=== PATIENT | female | born 1960 | race Caucasian/White ===

== ENCOUNTER 2022-01-23 11:11 | Outpatient (CLI) | payer MEDICARE, BC, SELFPAY ==
--- NOTE | 2022-01-23 11:15 | CRLHL7_ITS ---
For Patients: As a result of the Century Cures Act, medical imaging exams and procedure reports are released immediately into your electronic medical record. You may view this report before your referring provider. If you have questions, please contact your health care provider. INDICATION: Right hip pain. Degenerative arthritis. Informed consent was obtained. Benefits and risks were discussed. The patient agreed to proceed. [place] protocol was followed. TIME-OUT conducted just prior to starting procedure confirmed patient identity, site/side, procedure, patient position, and availability of correct equipment. Pause for cause was performed. Utilizing sterile technique and 1 percent lidocaine for local anesthetic, under fluoroscopic guidance, a 22-gauge needle was advanced into the right hip joint without significant difficulty. Subsequently, a few cc of nonionic Omnipaque-240 was instilled demonstrating the needle tip within the joint space. Subsequently, a mixture of 2 cc Depo-Medrol 40 mg/mL and 4 cc of Xylocaine 1 percent was injected into the patient`s hip joint without difficulty. Prior to the procedure the patient stated her pain was between 6 and 7/10 and after the procedure 3/10. 1 minute 58 seconds fluoroscopy time utilized. IMPRESSION: Technically successful fluoroscopically-guided right hip injection for pain. No immediate complications. Dictated by Prince Stafford MD @ 01/23/2022 2:04:58 PM JR/Dictated by: Prince Stafford MD @ 01/23/2022 1:06:00 PM (Electronically Signed)
== END 2022-01-23 11:12 | disposition home or self-care (01) ==
LOC: RAD 11:14
PROVIDERS: PCP Family Medicine; Visit Provider Orthopaedic Surgery Sports Medicine
DX: M16.11 Unilateral primary osteoarthritis, right hip (principal); M25.551 Pain in right hip
CPT/HCPCS: 20610; 77002; Q9966

== ENCOUNTER 2022-11-26 11:00 | Outpatient (RCR) | payer MEDICARE, BC, SELFPAY ==
--- NOTE | 2022-10-03 09:38 | PT.OPEX ---
PT [place] Outpatient Eval PT [facility] Outpatient Eval Start: 10/03/22 07:53 Freq: Status: Active Protocol: Document 10/03/22 07:54 ENM (Rec: 10/03/22 09:32 ENM [id number]) E-signed By Uma Christopher, DPT Physical Therapy Outpatient Evaluation Insurance Information Recert Due Date 12/26/22 Insurance Name Medicare B Medical Diagnosis unilateral primary osteoarthritis, right hip other specified enthesopathies of right lower limb, excluding foot trochanteric bursitis, right hip morbid (severe) obesity due to excess calories bilateral osteoarthritis of knee pain in left hip Treating Diagnosis right hip pain, bilateral knee pain, back pain, deconditioning, decreased hip and knee strength, impaired gait Referring MD Ravi Subjective Subjective Patient presents to PT for pains in back, right hip and bilateral knees that have been present for years. She states that she does not walk far she is only able to go half a block and then she starts hurting. The most bothersome of them all is the right hip. The knees bother her the most with sitting for a while at work then standing and stairs. With standing to work in her kitchen the back starts to hurt almost immediately. Back pains do not run down the legs . She saw months ago and did not follow up with PT but she is motivated to come in now as the pains are getting worse. Had a hip injection at the time which seemed to provide a few weeks of relief. She was going to see the spine clinic yesterday but decided to cancel that appointment. She doesn't move much throughout her day but goes to water aerobics about twice a week. 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 33s hip flexors 4+/5 B knee extensors 4-/5 B hip abductors 3+/5 B palpation/joint mobility: + for pain with palpation of R glute med and bursa gait/ambulation: Ambulates with slight left trunk lean Patient able to ambulate consecutively for 4 mins and 30s 623', knees started bothering 1.5 mins in, hip started bothering 3 mins in and was the most limiting SLS able to hold 8-10s B, noted L hip drop when standing on R leg special tests: MATHEW + on L - R FADDIR + on L - R SCOUR - B Functional Test Performed & Score LEFS: Assessment Assessment/Impression Patient is a 62 year old female presenting with bilateral knee, right hip and back pain that has been increasing in intensity over the years. Their primary complaint is of pain with all mobility. She is limited in her standing and walking tolerance as well as ability to perform the stairs. Upon assessment patients concordant pains brought on with ambulation, R lumbar sidebending, and palpation of right greater trochanter region. Special testing + on L side for MATHEW and FADDIR, - on R side. She displays global B LE weakness most significant in hip abductors and knee extensors. She is able to ambulate for 4.5 mins (623') before being limited by her right hip pain. Sandie would greatly benefit from skilled PT to address impairments stated above in order to perform all functional mobility and household duties without significant discomfort or difficulty. Primary Functional Limitations walking, standing, stairs Plan of Care Rehabilitation Potential Good Physical Therapy Goals In 8-10 visits: 1. Patient will be IND with HEP and self management of symptoms 2. Patient will improve 5x STS from 27.33s to 23.33s (MDC 4s ) to demonstrate improvements in LE functional strength and endurance 3. Patient will be able to navigate a full flight of stairs without difficulty 4. 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 Patient will be able to tolerate walking at least 650' to progress tolerance for community mobility Coordination/Communication With Referral Source Treatment Plan/Direct Interventions Gait Training,Ice/Cold/ Vasopneumatic,Joint Mobilization,Manual Therapy, Neuromuscular Re-ed,Self-Care/ Home Management,Therapeutic Activities,Therapeutic Exercises Frequency/Duration 1x a week for 8 weeks, as needed for 2-3 visits Patient Will Be Discharged From Therapy Completion of LTG(s), Independent w/HEP Evaluation Billing Untimed Code Treatment Minutes 34 Complexity Low Certification Information Initial Certification Date 10/03/22 Ending Certification Date 12/26/22 Provider Signature Shows Agreement With POC & Medical Necessity Physician Signature & Date Requested Please Sign/Date Here Physician Comment/Change : Physician NPI Number #
== END 2023-01-30 14:41 | disposition home or self-care (01) ==
PROVIDERS: PCP Family Medicine; Visit Provider Orthopaedic Surgery Sports Medicine
DX: M16.11 Unilateral primary osteoarthritis, right hip (principal); M76.891 Other specified enthesopathies of right lower limb, excluding foot; M70.61 Trochanteric bursitis, right hip; E66.01 Morbid (severe) obesity due to excess calories; Z68.41 Body mass index [BMI] 40.0-44.9, adult; M17.0 Bilateral primary osteoarthritis of knee; M25.552 Pain in left hip; M25.562 Pain in left knee; M25.561 Pain in right knee; M25.551 Pain in right hip; M54.9 Dorsalgia, unspecified; R26.9 Unspecified abnormalities of gait and mobility; R53.1 Weakness; Z51.89 Encounter for other specified aftercare
CPT/HCPCS: 97110; 97140; 97161

== ENCOUNTER 2024-12-20 10:30 | Outpatient (RCR) | payer MEDICARE, BC, SELFPAY ==
--- NOTE | 2024-10-26 16:16 | PT.OPEX ---
PT [facility] Outpatient Eval PT [facility] Outpatient Eval Start: 10/26/24 10:59 Freq: Status: Active Protocol: Document 10/26/24 10:59 SÁNCHEZ (Rec: 10/26/24 12:54 HEN [id number]) E-signed By Minerva Floyd DPT Physical Therapy Outpatient Evaluation Insurance Information Recert Due Date 01/23/25 Insurance Name Medicare B Medical Diagnosis E66.01 corresponds to Morbid (severe) obesity due to excess calories Z68.41. Body mass index [BMI] 40 or greater, adult OA of bilateral knees Treating Diagnosis M25.561 (Pain in right knee) and M25.562 (Pain in left knee) Referring MD Jermaine Ravi MD Subjective Preferred Name Sandie Loyola Pt is a 64 year old female with insidious onset bilateral knee pain over the past 10 years. Pt plans to get R knee replaced in February and L knee shortly after. Pt would like to get ready for surgery. R hip pain. 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 Treatment Diabetes, Depression, HLD managed with medication, Precautions/ Ozempic, Contraindications Therapy Limitations/ Not Limited Systems Review Objective Other/Pertinent Knee ROM: Objective R: X-5-115 R X-4-115 LE MMT: Hip flexion 5/5 bilaterally Hip abduction 3+/5 bilaterally Knee flexion 4/5 bilaterally Knee extension 4/5 bilaterally Ankle DF: 5/5 bilaterally Ankle PF: 2+/5 bilaterally tested in sitting Palpation: increased tenderness along bilateral quads, decreased patellar mobility Assessment Assessment/ Patient is a 64 year old female with chronic bilateral Impression knee pain with insidious onset. Patient demonstrates impairments in bilateral knee ROM, LE strength and increased pain consistent with bilateral knee OA. These impairments impact the patient's transfers, ambulation , stair navigation and participation in ADLs and IADLs including ward aide. Patient will benefit from skilled physical therapy to address the impairments and activity limitations listed above. Plan of Care Rehabilitation Good Potential Rehabilitation Patient motivation Potential Comments Physical Therapy Short term goals 6 weeks Goals 1. Patient will demonstrate independence with initial home exercise program 2. Patient will demonstrate full knee extension ROM in order to prepare for surgery skilled nursing goals 12 weeks 1. Patient will demonstrate independence with finalized home exercise program in order to self manage condition 2. Patient will complete 15 reps during 30 second sit to stand to demonstrates improved bilateral functional knee strength in order to prepare for surgery 3. Patient will ascend/descend 5 stairs reciprocally with 1 rail and no increase in pain in order to improve home navigation. Coordination/ Referral Source Communication With Treatment Plan/ Dry Needling,Electrical Stimulation,Ice/Cold/ Direct Interventions Vasopneumatic,Joint Mobilization,Manual Therapy, Neuromuscular Re-ed,Self-Care/Home Management, Therapeutic Activities,Therapeutic Exercises Frequency/Duration 1x/week for 12 weeks Patient Will Be Completion of LTG(s),Skills Plateau,Independent w/HEP Discharged From Therapy Evaluation Billing Untimed Code 15 Treatment Minutes Complexity Low Certification Information Initial 10/26/24 Certification Date Ending Certification 01/23/25 Date Provider Signature Yes Required Provider Signature POC & Medical Necessity Shows Agreement With Physician NPI Number Write NPI# Here Physician Comment/ : Change Physician Signature Please Sign/Date Here & Date Requested
== END 2024-12-20 11:22 | disposition home or self-care (01) ==
PROVIDERS: PCP Student in an Organized Health Care Education/Training Program; Visit Provider Orthopaedic Surgery Sports Medicine
DX: M17.0 Bilateral primary osteoarthritis of knee (principal); E66.01 Morbid (severe) obesity due to excess calories; Z68.41 Body mass index [BMI] 40.0-44.9, adult; Z51.89 Encounter for other specified aftercare
CPT/HCPCS: 97110; 97161; 97535

== ENCOUNTER 2025-02-22 11:33 | Day surgery (SDC) | payer MEDICARE, BC, SELFPAY ==
[2025-02-22] VITALS (23 sets, daily range): BP systolic 96–147; BP diastolic 51–84; PULSE 75–108; RESP 10–16; TEMP 35.8–37; O2SAT 88–98; BMI 42.0
[2025-02-22] MEDS: LACTATED RINGERS 1000 ML 1,000 ML 100 ML IV ×2 (11:40→15:50)
[2025-02-22] MEDS: ACETAMINOPHEN 500 MG TABLET 1000 MG PO ×2 (12:35→20:29)
[2025-02-22] MEDS: OXYCODONE (CR) 10 MG TAB.ER.12H PO (12:35)
[2025-02-22] MEDS: SODIUM CHLORIDE 0.9 % (FLUSH) 10 ML SYRINGE IVF ×2 (12:36→18:22)
--- NOTE | 2025-02-22 14:11 | SUR.PREOP ---
TIME?OUT:? PT/RN/MDA?VERIFICATION?OF?SURGICAL?SITE,?PROCEDURE,?AND?CONSENT OBTAINED?PRIOR?TO?INVASIVE?PROCEDURE.
--- NOTE | 2025-02-22 14:11 | SUR.PREOP ---
TIME?OUT:?1411 PT/RN/MDA?VERIFICATION?OF?SURGICAL?SITE,?PROCEDURE,?AND?CONSENT OBTAINED?PRIOR?TO?INVASIVE?PROCEDURE.
[2025-02-22] MEDS: MIDAZOLAM HCL 1 MG/ML inj IVP (14:13)
--- NOTE | 2025-02-22 14:18 | P.ANES_ITS ---
Anesthesia Charges Start Date/Time Anesthesia Start Date: 02/22/25 Anesthesia Start Time: 14:58 Stop Date/Time Anesthesia Stop Date: 02/22/25 Anesthesia Stop Time: 18:15 Coding CPT Codes CPT Codes: ANESTH KNEE ARTHROPLASTY - 09301 ([id number]) P3 - PATIENT W/SEVERE SYS DISEASE, QK - SERVICE DELIVERY CONSULTANT 2-4 CNCRNT ANES PROC, QX - EQUIPMENT MAINTENANCE TECH SVC W/ MD MED DIRECTION
--- NOTE | 2025-02-22 14:18 | P.NB_ITS ---
Nerve Block Nerve Block Time Seen by Provider: 14:15 Date Seen: 02/22/25 Type of block requested by surgeon for post-operative analgesia: adductor canal Side: right Time out performed: Yes Verification of patient name: Yes Verification of date of : Yes Site marking: site marked Name of person performing procedure: Selvin Continuous monitoring Was continuous monitoring of O2 sat, B/P, cardiac rehabilitation specialist, recorded every 15 minutes?: Yes Procedure Checklist: sterile prep, needles and gloves Ultrasound guided. Images saved: Yes Medications given in 5ml increments after negative aspiration: Marcaine %: 0.25 mL: 15 Needle gauge: 20 Precedex (mcg): 25 Patient tolerated procedure well: Yes Block Charges Block Charge (with Pro Fee): Femoral Nerve Use of Ultrasound Machine for Block: Yes- US Guidance/pain block
--- NOTE | 2025-02-22 14:18 | P.NB_ITS ---
Nerve Block Nerve Block Time Seen by Provider: 14:15 Date Seen: 02/22/25 Type of block requested by surgeon for post-operative analgesia: geniculars Side: right Time out performed: Yes Verification of patient name: Yes Verification of date of : Yes Site marking: site marked Name of person performing procedure: Selvin Continuous monitoring Was continuous monitoring of O2 sat, B/P, cafeteria monitor, recorded every 15 minutes?: Yes Procedure Checklist: sterile prep, needles and gloves Ultrasound guided. Images saved: Yes Medications given in 5ml increments after negative aspiration: Marcaine %: 0.25 mL: 9 Needle gauge: 25 Patient tolerated procedure well: Yes Block Charges Block Charge (with Pro Fee): Genicular Nerve Block
--- NOTE | 2025-02-22 14:18 | W.ANESCHARGE ---
Anesthesia Charges Start Date/Time Anesthesia Start Date: 02/22/25 Anesthesia Start Time: 14:58 Stop Date/Time Anesthesia Stop Date: 02/22/25 Anesthesia Stop Time: 18:15 Coding CPT Codes CPT Codes: ANESTH KNEE ARTHROPLASTY - 36752 ([id number]) P3 - PATIENT W/SEVERE SYS DISEASE, QK - JAVA SECURITY ARCHITECT 2-4 CNCRNT ANES PROC, QX - AERONAUTICAL ENGINEERING PROFESSOR SVC W/ MD MED DIRECTION
[2025-02-22] MEDS: TRANEXAMIC ACID 100 MG/ML INJ 1000 MG IV (15:17)
--- NOTE | 2025-02-22 15:20 | W.PM.H&PU ---
History & Physical Update History & Physical Update H&P Reviewed and patient assessed: No changes noted
--- NOTE | 2025-02-22 15:20 | PM.IMCN1 ---
Date of Consult Consult date: 02/22/25 Primary Care Provider: Roxann Joe MD Consult Narrative Narrative: Sandie Longo is a 64 year old female patient with past medical history of hyperlipidemia, diabetes type 2, NELY, morbid obesity and depression who presents for elective right knee replacement surgery. No history of anesthesia complications. Patient denies history of DVT/PEs or history of bleeding. Hb 15 g/dL (01/31/25). Normal kidney function. Last A1c 7.6 (Dec, 2024). Pt wears CPAP regularly. Patient is on aripiprazole 5 mg daily, duloxetine 90 mg once daily, atorvastatin 40 mg at bedtime and on semaglutide 2mg weekly (Held 7 days before surgery). Review of Systems Status of ROS: Reports: 6 or more systems reviewed and unremarkable except as noted in History and below PFSH [facility] Medical History (Updated 02/22/25 @ 15:25 by Mary Lange MD) Bursitis of hip, right ?M70.71 - Other bursitis of hip, right hip (ICD-10) Cervical high risk HPV (human papillomavirus) test positive ?R87.810 - Cervical high risk human papillomavirus (HPV) DNA test positive (ICD-10) Elevated ratio of cholesterol to high density lipoprotein (HDL) ?E78.6 - Lipoprotein deficiency (ICD-10) Severe episode of recurrent major depressive disorder, without psychotic features ?F33.2 - Major depressive disorder, recurrent severe without psychotic features (ICD-10) Seasonal affective disorder ?F33.8 - Other recurrent depressive disorders (ICD-10) Insomnia ?G47.00 - Insomnia, unspecified (ICD-10) Nasal congestion ?R09.81 - Nasal congestion (ICD-10) Type 2 diabetes mellitus without complication, without long-term current use of insulin ?E11.9 - Type 2 diabetes mellitus without complications (ICD-10) Hyperlipidemia ?E78.5 - Hyperlipidemia, unspecified (ICD-10) Prediabetes ?R73.03 - Prediabetes (ICD-10) Surgical History (Updated 02/22/25 @ 18:58 by Mary Lange MD) Status post arthroscopic partial medial meniscectomy (06/08/15) ?Z98.890 - Other specified postprocedural states (ICD-10) History of cholecystectomy (1996) ?Z90.49 - Acquired absence of other specified parts of digestive tract (ICD-10) Family History Mother Coronary artery disease Breast cancer Stroke Father No problems noted. Social History What is your current living situation?: I presently have a place to live Problems where you live: no known problems In the past 12 months, utilities in danger of being shut off: no In past 12 months, lack of transportation kept you from medical appts, meetings, work, or getting things needed for daily living: no In the past 12 mos, have been you worried that your food would run out before you had money to buy more?: never true In the past 12 mos, the food you bought just didn't last and you didn't have money to buy more?: never true Smoking Status: Never smoker Do you use any of these nicotine containing products: None How often do you have a drink containing alcohol: monthly or less AUDIT-C Alcohol total score: 1 Non-prescribed substance use: denies use Caffeine: Yes How often does anyone, including family, friends and others, physically hurt you: never How often does anyone, including family, friends and others, insult or talk down to you: never How often does anyone, including family, friends and others, threaten you with harm: never How often does anyone, including family, friends and others, scream or curse at you: never Meds Home Medications and Allergies Home Medications ?Medication ?Instructions ?Recorded ?Confirmed ?Type duloxetine 60 mg capsule,delayed 60 mg PO DAILY 01/17/22 02/22/25 History release albuterol sulfate 90 mcg/actuation 2 puff inhalation Q4-6H PRN 06/10/23 02/22/25 Rx aerosol inhaler shortness of breath or wheezing #1 ea atorvastatin 40 mg tablet 40 mg PO QPM 09/27/24 02/22/25 History naproxen 250 mg tablet 250 mg PO BID PRN 01/24/25 02/22/25 History Held on 02/22/25. Instructions: Resume on 03/23/25. semaglutide 1 mg/dose (4 mg/3 mL) 2 mg subcut .weekly 01/24/25 02/22/25 History subcutaneous pen injector (Ozempic) aripiprazole 5 mg tablet 5 mg PO QDAY 02/10/25 02/22/25 History acetaminophen 500 mg capsule 500 - 1,000 mg (1 - 2 x 500 mg) PO 02/22/25 Rx Q6H PRN #100 caps aspirin 81 mg tablet,delayed 81 mg PO BID #60 tabs 02/22/25 Rx release duloxetine 30 mg capsule,delayed 30 mg PO QAM 02/22/25 02/22/25 History release oxycodone 5 mg tablet 2.5 - 5 mg (0.5 - 1 x 5 mg) PO 02/22/25 Rx Q4-6H PRN pain #42 tabs sennosides 8.6 mg-docusate sodium 1 - 4 tab-cap (1 - 4 x 8.6-50 mg) 02/22/25 Rx 50 mg tablet (Senna-S) PO BID PRN constipation #60 tabs Allergies Allergy/AdvReac Type Severity Reaction Status Date / Time No Known Drug Allergies Allergy Verified 02/10/25 11:06 Exam Narrative: Exam Narrative: Physical exam GENERAL: Comfortable, no acute distress. HEAD AND NECK: Atraumatic, normocephalic CARDIOVASCULAR: RRR. Normal S1, S2. No murmurs. RESPIRATORY: Clear to auscultation B/L. Good air entry B/L. No wheezes or rhonchi. NEUROLOGY: Alert, awake, oriented X 3. Normal speech. PSYCH: Normal mood, normal affect. Const: Vital Signs, click to edit/add: Vital Signs - 24 hr 02/22/25 12:45 02/22/25 14:09 02/22/25 14:15 Temperature 98.6 F Pulse Rate 97 106 H 106 H Respiratory Rate 16 16 16 Blood Pressure 147/80 H 146/73 H 143/70 H Pulse Oximetry 94 98 98 Oxygen Delivery Me thod Room Air Nasal Cannula Nasal Cannula Oxygen Flow Rate 3 3 02/22/25 14:20 02/22/25 14:30 02/22/25 14:40 Temperature Pulse Rate 102 H 108 H 107 H Respiratory Rate 14 14 14 Blood Pressure 126/73 114/71 129/77 Pulse Oximetry 97 98 98 Oxygen Delivery Me thod Nasal Cannula Nasal Cannula Nasal Cannula Oxygen Flow Rate 3 3 3 Assessment and Plan Assessment and plan (1) Status post right knee replacement: Problem comment: Status post surgery on February 22. Weight bear as tolerated operative extremity. PT/OT consults DVT prophylaxis with at SCDs and aspirin 81 mg twice daily. Incentive spirometry Status: Acute (2) Type 2 diabetes mellitus without complication, without long-term current use of insulin: Problem comment: Last A1c 7.6 (Dec, 2024). Normal kidney function. On semaglutide at home Ordered glucose check Ordered insulin sliding scale Status: Acute (3) Obstructive sleep apnea: Problem comment: Pt wears CPAP regularly. Status: Acute (4) Morbid obesity with BMI of 40.0-44.9, adult: Problem comment: On semaglutide 2 mg weekly Status: Acute (5) Hyperlipidemia: Problem comment: On atorvastatin 40 mg daily Status: Acute (6) Depression: Problem comment: On aripiprazole and duloxetine Status: Acute Total Time Spent Total Time Spent: Today I spent 50 minutes seeing the patient, reviewing [facility]panse and EPIC notes/diagnostics, discussing the care plan with our care time that includes social work, PT/OT, pharmacy, RT, long-term and documenting my impressions and plan in the medical record.
--- NOTE | 2025-02-22 17:51 | P.ORPRC_ITS ---
Procedure Note Date of procedure: 02/22/25 Procedure: PREOPERATIVE DIAGNOSIS: 1. Right knee osteoarthritis, primary, severe 2. Morbid obesity-BMI 42.1 (105 kg) POSTOPERATIVE DIAGNOSIS: 1. Right knee osteoarthritis, primary, severe 2. Morbid obesity-BMI 42.1 (105 kg) PROCEDURE: 1. Right total knee arthroplasty - subvastus, limited tourniquet; modifier 22- 33% added difficulty and time for this case due to patient's body mass (BMI 42.1). This required increased number of assistance and retractors and a stemmed tibial component which added time and complexity to the case. SURGEON: Jermaine Ravi MD. SCIENTIFIC HELPER: Al Posada PA-C; PARAG Barkley - Of note, a skilled dental hygiene administrative assistant was critical for this case to aid in patient positioning, tissue retraction, limb manipulation/positioning, and closure. ANESTHESIA: Spinal anesthetic IMPLANTS: DePuy J&J all cemented TKA - Attune PS femur size 4 narrow Size 3 tibia ([id number] stem) 5 mm poly spacer 32 mm patella TOURNIQUET: 60 minutes at 250 torr EBL: 100 mL COMPLICATIONS: None evident INDICATIONS: The patient is a pleasant 64-year-old female who has experienced severe right knee pain and difficulty bearing weight. Workup included x-rays which revealed severe osteoarthrosis in the knee. Given the deformity, the dysfunction, and the pain, as well as the failure of nonoperative management, recommendation was made for surgery. FINDINGS: Full-thickness chondral loss diffusely throughout the medial compartment. Also patellofemoral and lateral compartment chondromalacia. Degenerative meniscus pathology medial greater than lateral. Moderate effusion upon entering the joint. DESCRIPTION OF PROCEDURE: Following a thorough discussion of risks, benefits, and alternatives consent was obtained and the right knee was marked. The patient was brought to the operating room and placed supine on the operating table. Induction of anesthesia was undertaken. 2 g IV Ancef and 1 g tranexamic acid was administered within 1 hr of incision preoperatively. Proper time-out was performed identifying proper patient, site, procedure. The operative extremity was prepped and draped in the appropriate sterile fashion using ChloraPrep after the patient was positioned supine with all bony prominences well padded. A longitudinal, anterior, midline skin incision was made starting approximately 3cm proximal to the superior pole of the patella and advanced distal to the tibial tubercle. A subvastus approach was utilized. A medial subperiosteal sleeve was created with knife, hassan elevator and curved osteotome. The retropatellar fatpad was resected and the synovium in the suprapatellar pouch excised to visualize the anterior femoral cortex. Femoral preparation was performed via an intramedullary guide. Step drill allowed access into the femoral canal. The distal cutting guide was placed with 5? of valgus and 10 mm cut on the distal femur. Femur was sized using a posterior referencing guide in 3? of external rotation. This found have a best fit with the sizing noted above. The 4 in 1 cutting block was then placed, and the distal femur shaped accordingly. The box cut was then created and the trial implant inserted to confirm appropriate fit. We turned our attention to the proximal tibia. Intramedullary guide was utilized for cutting with the goal of being 90 degree cut from the mechanical axis of the tibia in the varus/valgus plane utilizing tibial crest as the primary alignment. Initially a 2 mm resection was performed from the medial tibial plateau. An additional 4mm did require resection to achieve appropriate balance. Ultimately, balancing was achieved in both flexion and extension in both varus and valgus. The knee was able to achieve full extension as well comfortably. Of note, a stemmed tibial component was selected given the increased body mass (BMI 42.1). Given the patient's tight tibial canal and posterior tibial slope, a 30 mm stem was selected. The patella was initially measured and found have a thickness of 23 mm. It was resected back to approximately 14 mm. It was sized to be a best fit with as noted above. This was drilled, trial placed. All trials were placed and found to have an excellent stability and balance. At this stage, trial implants were removed, the knee was thoroughly irrigated with normal saline, and the cement was mixed. After irrigation, the knee was thoroughly dried, and cement placed, with the real tibial and femoral implants placed along with the patella. Trial poly spacer was placed and confirmed to have excellent range of motion and full extension, and the real poly spacer opened and inserted. All extra cement was removed, and a 3 min Betadine soak performed. Finally, a final irrigation round with normal saline was performed. Closure performed with 0 Vicryl and #0 Stratafix for the quad tendon/retinaculum. 2-0 Vicryl for the subcutaneous and 4-0 Stratafix for subcuticular closure. Dressings were applied and the patient was awoken from anesthesia after the tourniquet deflated and transferred the PACU in stable condition. A skilled dental hygiene administrative assistant was critical for this case to aid in patient positioning, tissue retraction, bone exposure, limb manipulation/positioning, patient safety, and closure. 33% added difficulty and time for this case due to patient's body mass (BMI 42.1). This required increased number of assistance and retractors and a stem med tibial component which added time and complexity to the case. PLAN: 1. Weight bear as tolerated operative extremity. 2. 23 hr perioperative antibiotics. 3. Ice. 4. PT/OT consults for ambulation assistance/mobility education. 5. Social work consult for discharge planning. 6. DVT prophylaxis with at SCDs and aspirin twice daily.
--- NOTE | 2025-02-22 17:55 | CRLHL7_ITS ---
For Patients: As a result of the Cures Act, medical imaging exams and procedure reports are released immediately into your electronic medical record. You may view this report before your referring provider. If you have questions, please contact your health care provider. Indication: Postop Technique: Two views right knee Findings/Impression: Hardware from a right total knee arthroplasty is in satisfactory position. Bone alignment is normal. No sign of acute fracture. Postop changes are within normal limits. Dictated by Devante Tamayo MD @ 02/23/2025 8:58:01 AM (Electronically Signed)
[2025-02-22] MEDS: ONDANSETRON 2 MG/ML inj 4 MG IVP (18:22)
--- NOTE | 2025-02-22 18:23 | P.ANES_ITS ---
Anesthesia Charges Start Date/Time Anesthesia Start Date: 02/22/25 Anesthesia Start Time: 14:58 Stop Date/Time Anesthesia Stop Date: 02/22/25 Anesthesia Stop Time: 18:15 Coding CPT Codes CPT Codes: ANESTH KNEE ARTHROPLASTY - 22162 ([id number]) P3 - PATIENT W/SEVERE SYS DISEASE, QK - PAINTING MANAGER 2-4 CNCRNT ANES PROC, QX - REAL ESTATE ADMINISTRATIVE ASSISTANT SVC W/ MD MED DIRECTION
--- NOTE | 2025-02-22 18:23 | W.ANESCHARGE ---
Anesthesia Charges Start Date/Time Anesthesia Start Date: 02/22/25 Anesthesia Start Time: 14:58 Stop Date/Time Anesthesia Stop Date: 02/22/25 Anesthesia Stop Time: 18:15 Coding CPT Codes CPT Codes: ANESTH KNEE ARTHROPLASTY - 65974 ([id number]) P3 - PATIENT W/SEVERE SYS DISEASE, QK - DAY CAMP UNIT LEADER 2-4 CNCRNT ANES PROC, QX - MANAGER COLLECTION SVC W/ MD MED DIRECTION
[2025-02-22] MEDS: PROCHLORPERAZINE 5 MG/ML VIAL IVP (19:13)
[2025-02-22] MEDS: LACTATED RINGERS 1000 ML 1,000 ML 75 ML IV (19:17)
[2025-02-22] MEDS: CEFAZOLIN 2 GM in 0.9 % SODIUM CHLORIDE Mini-bag 100 ML IVPB (19:52)
[2025-02-22] MEDS: ATORVASTATIN CALCIUM 40 MG TABLET PO (20:28)
[2025-02-22] MEDS: SENNOSIDES 1 TAB TABLET 2 TAB PO (20:29)
[2025-02-22] MEDS: ASPIRIN 81 MG TABLET EC PO (20:29)
[2025-02-23] VITALS: BP 111/71; PULSE 82; RESP 16; TEMP 36.4; O2SAT 90
[2025-02-23 01:00] VITALS: BP 129/77; PULSE 83; RESP 16; TEMP 36.5; O2SAT 94
[2025-02-23] MEDS: ACETAMINOPHEN 500 MG TABLET 1000 MG PO ×2 (02:56→09:59)
[2025-02-23] MEDS: CEFAZOLIN 2 GM in 0.9 % SODIUM CHLORIDE Mini-bag 100 ML IVPB ×2 (02:59→11:29)
[2025-02-23 03:00] VITALS: BP 136/75; PULSE 85; RESP 16; TEMP 36.6; O2SAT 94
[2025-02-23] MEDS: SODIUM CHLORIDE 0.9 % (FLUSH) 10 ML SYRINGE IVF (03:11)
--- NOTE | 2025-02-23 06:20 | PC.NURSE ---
Pt?is?alert and oriented x3. Afebrile. Pt reports 2-6/10 pain in right knee, managed with PRN medications. Pt?s right knee dressing is CDI. Pt is up?A1 with walker and gait belt, voiding, and tolerating a regular diet.??
[2025-02-23 07:43] VITALS: BP 122/74; PULSE 90; RESP 18; TEMP 36.6; O2SAT 95
[2025-02-23 08:00] VITALS: RESP 18; O2SAT 95
[2025-02-23] MEDS: INSULIN ASPART 100 UNIT/ML SUBCUT ×2 (08:13→11:37)
--- NOTE | 2025-02-23 09:57 | PM.ORPN ---
Subjective Subjective Date Seen: 02/23/25 Principal diagnosis: Status postop day 1 right total knee arthroplasty Interval history: Patient reports doing okay. No acute events over night. Pain has been difficult, but overall manageable with medications both scheduled and p.r.n.. Using ice for pain as well. DVT prophylaxis: 81 mg aspirin by mouth twice daily, SCDs, walking. Denies fevers, chills, aches, N/V, CP, SOB/LEMONS, or lightheadedness. Passing flatus. Ortho Exam Narrative Exam Narrative: -Patient appears reasonably comfortable; no apparent acute distress. Walking with walker accompanied by physical therapist and friend/family -Alert and oriented times 3 -Operative knee moderately swollen; moderate effusion. Soft tissues supple; no ecchymosis; no erythematous streaking. Warmth appropriate -Surgical dressing clean, dry, intact; no drainage -Bilateral calves soft; no significant swelling, edema, tenderness, erythema, discoloration, warmth, or palpable cords. Right calf and lower leg/knee is swollen, mild discomfort to broad palpation -2+ DP/PT pulses, intact dermatomes and myotomes distally (5/5 strength) Const Vital Signs, click to edit/add: Vital Signs - 24 hr 02/22/25 12:45 02/22/25 14:09 02/22/25 14:15 Temperature 98.6 F Pulse Rate 97 106 H 106 H Pulse Rate [Left Pulse Oximeter] Respiratory Rate 16 16 16 Blood Pressure 147/80 H 146/73 H 143/70 H Blood Pressure [Right Arm] Pulse Oximetry 94 98 98 Oxygen Delivery Method Room Air Nasal Cannula Nasal Cannula Oxygen Flow Rate 3 3 02/22/25 14:20 02/22/25 14:30 02/22/25 14:40 Temperature Pulse Rate 102 H 108 H 107 H Pulse Rate [Left Pulse Oximeter] Respiratory Rate 14 14 14 Blood Pressure 126/73 114/71 129/77 Blood Pressure [Right Arm] Pulse Oximetry 97 98 98 Oxygen Delivery Method Nasal Cannula Nasal Cannula Nasal Cannula Oxygen Flow Rate 3 3 3 02/22/25 18:15 02/22/25 18:20 02/22/25 18:25 Temperature 98.2 F Pulse Rate 78 80 82 Pulse Rate [Left Pulse Oximeter] Respiratory Rate 12 14 12 Blood Pressure 118/68 117/76 116/84 Blood Pressure [Right Arm] Pulse Oximetry 88 94 96 Oxygen Delivery Method OxyMask OxyMask OxyMask Oxygen Flow Rate 6 6 6 02/22/25 18:30 02/22/25 18:35 02/22/25 18:40 Temperature Pulse Rate 76 82 80 Pulse Rate [Left Pulse Oximeter] Respiratory Rate 12 12 14 Blood Pressure 101/51 L 104/57 L 115/63 Blood Pressure [Right Arm] Pulse Oximetry 95 94 94 Oxygen Delivery Method OxyMask Room Air Room Air Oxygen Flow Rate 6 02/22/25 18:45 02/22/25 18:50 02/22/25 19:10 Temperature 96.5 F L Pulse Rate 78 76 Pulse Rate [Left Pulse Oximeter] 79 Respiratory Rate 12 10 L 14 Blood Pressure 109/65 101/61 Blood Pressure [Right Arm] 117/66 Pulse Oximetry 96 96 93 Oxygen Delivery Method OxyMask OxyMask Room Air Oxygen Flow Rate 4 4 02/22/25 19:15 02/22/25 19:30 02/22/25 19:45 Temperature 96.5 F L 97.5 F L 97.4 F L Pulse Rate Pulse Rate [Left Pulse Oximeter] 81 79 75 Respiratory Rate 14 14 14 Blood Pressure Blood Pressure [Right Arm] 122/68 131/72 121/64 Pulse Oximetry 94 90 94 Oxygen Delivery Method Room Air Room Air Room Air Oxygen Flow Rate 02/22/25 20:00 02/22/25 20:30 02/22/25 21:00 Temperature 97.6 F 97.7 F 97.6 F Pulse Rate Pulse Rate [Left Pulse Oximeter] 75 78 81 Respiratory Rate 12 12 12 Blood Pressure Blood Pressure [Right Arm] 96/60 135/73 134/79 Pulse Oximetry 96 93 95 Oxygen Delivery Method Room Air Nasal Cannula Nasal Cannula Oxygen Flow Rate 2 1 02/22/25 22:00 02/22/25 23:00 02/22/25 23:00 Temperature 97.7 F Pulse Rate Pulse Rate [Left Pulse Oximeter] 77 78 Respiratory Rate 14 Blood Pressure Blood Pressure [Right Arm] 122/66 Pulse Oximetry 95 90 Oxygen Delivery Method Nasal Cannula Oxygen Flow Rate 1 02/22/25 23:00 02/22/25 23:00 02/23/25 00:00 Temperature 97.5 F L 97.6 F Pulse Rate Pulse Rate [Left Pulse Oximeter] 78 82 Respiratory Rate 14 14 16 Blood Pressure Blood Pressure [Right Arm] 112/66 111/71 Pulse Oximetry 90 90 90 Oxygen Delivery Method Nasal Cannula Room Air Room Air Oxygen Flow Rate 02/23/25 01:00 02/23/25 03:00 02/23/25 07:43 Temperature 97.7 F 97.9 F 98 F Pulse Rate Pulse Rate [Left Pulse Oximeter] 83 85 90 Respiratory Rate 16 16 18 Blood Pressure Blood Pressure [Right Arm] 129/77 136/75 122/74 Pulse Oximetry 94 94 95 Oxygen Delivery Method CPAP CPAP Room Air Oxygen Flow Rate 02/23/25 08:00 02/23/25 08:00 Temperature Pulse Rate Pulse Rate [Left Pulse Oximeter] Respiratory Rate 18 Blood Pressure Blood Pressure [Right Arm] Pulse Oximetry 95 95 Oxygen Delivery Method Room Air Oxygen Flow Rate Assessment and Plan Assessment and plan (1) Status post right knee replacement: Problem details: Status post surgery on February 22. Weight bear as tolerated operative extremity. PT/OT consults DVT prophylaxis with at SCDs and aspirin 81 mg twice daily. Incentive spirometry Status: Acute (2) Type 2 diabetes mellitus without complication, without long-term current use of insulin: Problem details: Last A1c 7.6 (Dec, 2024). Normal kidney function. On semaglutide at home Ordered glucose check Ordered insulin sliding scale Status: Acute (3) Obstructive sleep apnea: Problem details: Pt wears CPAP regularly. Status: Acute (4) Morbid obesity with BMI of 40.0-44.9, adult: Problem details: On semaglutide 2 mg weekly Status: Acute (5) Hyperlipidemia: Problem details: On atorvastatin 40 mg daily Status: Acute (6) Depression: Problem details: On aripiprazole and duloxetine Status: Acute Plan - Complete 23 hour perioperative antibiotics. - PT/OT consult for education and assistance. - Social work consult for discharge planning - Prescribed analgesics as needed - DVT prophylaxis: 81 mg aspirin by mouth twice daily, walking, and SCDs - Anticipation is for discharge to home with family/friends today 02/23/2025 if the patient remains medically stable, pain is controlled, and they are safe with mobilization.
[2025-02-23] MEDS: DULOXETINE 30 MG CAPSULE DR 90 MG PO (09:58)
[2025-02-23] MEDS: ASPIRIN 81 MG TABLET EC PO (09:58)
[2025-02-23] MEDS: SENNOSIDES 1 TAB TABLET 2 TAB PO (09:59)
--- NOTE | 2025-02-23 10:20 | PC.SOCIAL ---
director of community services received a discharge planning referral. Pt. has no needs discharging home with a friends support.
[2025-02-23 11:30] VITALS: BP 148/71; PULSE 89; RESP 18; TEMP 36.7; O2SAT 95
--- NOTE | 2025-02-23 12:56 | PC.NURSE ---
Pt discharged @ 1240 via wheelchair, accompanied by friend. Going back to home. Pain and nausea managed. Pt reported understanding of discharge instructions. Forms signed. IV removed. Final room check complete.
== END 2025-02-23 12:40 | disposition home or self-care (01) ==
LOC: OR 11:35 → MEDSURG 11:36
PROVIDERS: PCP Student in an Organized Health Care Education/Training Program; Visit Provider Orthopaedic Surgery Sports Medicine
PROC: (CPT 27447; principal; 2025-02-22 13:15)
DX: M17.11 Unilateral primary osteoarthritis, right knee (principal); G89.18 Other acute postprocedural pain; E66.01 Morbid (severe) obesity due to excess calories; Z68.41 Body mass index [BMI] 40.0-44.9, adult; E11.9 Type 2 diabetes mellitus without complications; E78.5 Hyperlipidemia, unspecified; G47.33 Obstructive sleep apnea (adult) (pediatric); Z79.85 Long-term (current) use of injectable non-insulin antidiabetic drugs; F32.A Depression, unspecified
CPT/HCPCS: 27447; 01402; 64447; 64454; 73560; 76942; 82962; 97110; 97116; 97161; 97165; 97530; 97535; A9270; C1776; J0665; J0690; J0780; J1100; J1171; J2250; J2405; J2704; J3010; J7120